=== PATIENT | male | born 1975 | race African-American/Black ===

== ENCOUNTER 2018-11-20 00:18 | Emergency (ER) | payer BC ==
[~2018-11-20] VITALS: Ht 182.9 cm; Wt 118.8 kg
[~2018-11-20 00:18] MED LIST: CIPROFLOXACN500 MG PO; OMEPRAZOLE20 MG PO
[2018-11-20] MEDS ORDERED: TORADOL PO (01:52)
[2018-11-20 02:05] VITALS: BP 132/84
== END 2018-11-20 02:07 | disposition home or self-care (01) | DRG 563 ==
LOC: ED 00:18
DX: S83.8X1A Sprain of other specified parts of right knee, initial encounter (principal); X58.XXXA Exposure to other specified factors, initial encounter
CPT/HCPCS: L1830

== ENCOUNTER 2021-08-20 06:33 | Emergency (ER) | payer BC ==
[~2021-08-20] VITALS: Ht 182.9 cm; Wt 113.6 kg
[~2021-08-20 06:33] MED LIST changes: +TORADOL PO
[2021-08-20 07:44] LABS: HEMATOCRIT 43.4 % (39.0-50.0); MEAN CELL VOLUME 89.5 fL CALC (80.0-100.0); MEAN CORPUSCULAR HGB 28.9 pG CALC (26.0-32.0); MEAN CORPUSCULAR HGB CONC 32.3 g/dL CAL (32.0-36.0); NEUT# 1.05 thou/uL (1.82-7.42); RED BLOOD COUNT 4.85 mill/uL (4.70-6.10); RED CELL DISTRI WIDTH 12.9 % (11.5-15.5)
[2021-08-20 07:52] LABS: ALKALINE PHOSPHATASE 45 u/l (38-126); AMYLASE 85 u/l (30-110); ANION GAP 10 (6-22 (CALC)); BUN 13 mg/dL (9-20); BUN/CREATININE RATIO 12 (12-20 (CALC)); CARBON DIOXIDE 30 mmol/l (22-30); CHLORIDE 103 mmol/l (95-108); GFR > 60 ML/MIN (>=60 (CALC)); GFR FOR AFR.AMER. > 60 ML/MIN (>=60 (CALC)); LIPASE 91 u/l (23-300); POTASSIUM 4.2 mmol/l (3.5-5.1); SGOT/AST 38 u/l (17-59); SODIUM 139 mmol/l (137-146); TOTAL PROTEIN 7.3 g/dL (6.3-8.2)
[2021-08-20 07:56] LABS: BILIRUBIN, TOTAL 0.6 mg/dL (0.0-1.4)
[2021-08-20 08:32] LABS: URINE BILIRUBIN - DIPSTICK NEGATIVE (NEGATIVE); URINE BLOOD DIPSTICK NEGATIVE (NEGATIVE); URINE COLOR YELLOW; URINE GLUCOSE - DIPSTICK NEGATIVE (NEGATIVE); URINE KETONE NEGATIVE (NEGATIVE); URINE LEUK ESTERASE NEGATIVE (NEGATIVE); URINE PROTEIN - DIPSTICK NEGATIVE (NEG-TRACE); URINE SPECIFIC GRAVITY 1.025; URINE UROBILINOGEN - DIPSTICK 0.2 E.U./dL (0.2)
[2021-08-20 08:33] LABS: URINE NITRITE - DIPSTICK NEGATIVE (Negative)
[2021-08-20 09:20] VITALS: BP 141/92
== END 2021-08-20 09:20 | disposition home or self-care (01) | DRG 552 ==
LOC: ED 06:33
PROVIDERS: Family Medicine
DX: M54.50 Low back pain, unspecified (principal)

== ENCOUNTER 2021-08-27 10:58 | Emergency (ER) | payer BC ==
[~2021-08-27] VITALS: Ht 182.9 cm; Wt 120.0 kg
[2021-08-27 11:10] VITALS: BP 143/91
== END 2021-08-27 13:29 | disposition home or self-care (01) | DRG 556 ==
LOC: ED 10:58
DX: M25.572 Pain in left ankle and joints of left foot (principal)

== ENCOUNTER 2022-03-26 13:51 | Emergency (ER) | payer BC ==
[~2022-03-26] VITALS: Ht 182.9 cm; Wt 122.0 kg
[2022-03-26 13:57] VITALS: BP 140/96
[2022-03-26 14:00] VITALS: BP 156/97
[2022-03-26 14:16] VITALS: BP 142/96
[2022-03-26 14:26] LABS: HEMOGLOBIN 14.8 g/dl (14.0-18.0); MEAN CELL VOLUME 85.9 fL CALC (80.0-100.0); MEAN CORPUSCULAR HGB 28.9 pG CALC (26.0-32.0); MEAN CORPUSCULAR HGB CONC 33.6 g/dL CAL (32.0-36.0); NEUT# 1.62 thou/uL (1.82-7.42); RED BLOOD COUNT 5.12 mill/uL (4.70-6.10); RED CELL DISTRI WIDTH 12.7 % (11.5-15.5)
[2022-03-26 14:31] VITALS: BP 121/85
[2022-03-26 15:05] LABS: ALKALINE PHOSPHATASE 48 u/l (38-126); ANION GAP 17 (6-22 (CALC)); BUN 14 mg/dL (9-20); BUN/CREATININE RATIO 12 (12-20 (CALC)); CARBON DIOXIDE 26 mmol/l (22-30); CHLORIDE 102 mmol/l (95-108); CREATININE 1.2 mg/dL (0.7-1.3); GFR FOR AFR.AMER. > 60 ML/MIN (>=60 (CALC)); GFR OTHER RACES > 60 ML/MIN (>=60 (CALC)); LIPASE 153 u/l (23-300); POTASSIUM 4.4 mmol/l (3.5-5.1); SGOT/AST 37 u/l (17-59); SODIUM 141 mmol/l (137-146)
[2022-03-26 15:07] LABS: ALBUMIN 4.9 g/dL (3.2-5.0); BILIRUBIN, TOTAL 0.3 mg/dL (0.0-1.4)
[2022-03-26 18:16] VITALS: BP 121/85
== END 2022-03-26 18:21 | disposition home or self-care (01) | DRG 392 ==
LOC: ED 13:51
PROVIDERS: Family Medicine
DX: R10.11 Right upper quadrant pain (principal)
CPT/HCPCS: Q9967